=== PATIENT | male | born 1985 | race Caucasian/White ===

== ENCOUNTER 2019-06-14 19:00 | Emergency (ER) | payer OTHER ==
[~2019-06-14] VITALS: Ht 188 cm; Wt 145.2 kg
[2019-06-14] MEDS ORDERED: Ocuflox5 ML RIGHTEYE (19:37)
== END 2019-06-14 19:47 | disposition home or self-care (01) ==
LOC: ER 19:00
DX: T15.01XA Foreign body in cornea, right eye, initial encounter (principal); W45.8XXA Other foreign body or object entering through skin, initial encounter
CPT/HCPCS: 65205; 99283-25